=== PATIENT | male | born 1955 | race Caucasian/White ===

== ENCOUNTER 2016-10-05 19:34 | Emergency (ER) | payer SELFPAY ==
--- NOTE | 2016-10-06 03:42 | ER ---
ADMIT: 10/05/2016 RM/LOC: ER [facility] MR#: [id number] [place] [id number] [address] [place] [address] Emergency Room Report SEX: M AGE: 61 : 1955 DATE: 10/05/2016 The patient is a 61-year-old, self-employed male injured his left palm approximately 4 days ago using a rope that may have had metallic slivers. States he poked his palm to get out pus and now has increasing pain and swelling without fevers or chills. Exam remarkable for nontoxic, afebrile male with obvious deep space barragan infection left hand with ascending lymphangitis to above antecubital fossa. Mild tachycardia of 100. WBC 11.3, lactic 0.8, CRP 11.2, procalcitonin 0.06. Two blood cultures pending. The patient given vancomycin and Zosyn weight based. Refused admission. Discharged with Keflex 500 q.i.d. #40. Bactrim double-strength 2 p.o. b.i.d. #40. Follow Dr. Berumen tomorrow. Likely, will return to ED for admission tomorrow after he takes care of pressing business. Lnius Sorto MD/ mari JOB #: [id number] CC: Linus Sorto MD, Attending Physician Forest Berumen MD, Family Physician MD Rolando Avendaño MD
== END 2016-10-05 21:50 | disposition left against medical advice (07) ==
LOC: ER 19:34
DX: I89.1 Lymphangitis (principal); L08.9 Local infection of the skin and subcutaneous tissue, unspecified; F17.210 Nicotine dependence, cigarettes, uncomplicated